=== PATIENT | male | born 1935 | race Caucasian/White ===

== ENCOUNTER 2020-09-18 03:29 | Observation (INO) ==
[2020-09-18] MEDS ORDERED: Potassium Chlor 20 meq TAB.ER PO ONE (05:25)
[2020-09-18] MEDS ORDERED: Enoxaparin 40 MG/0.4 ML SYR SUBCUT SCH (06:00)
[2020-09-18] MEDS: Enoxaparin 40 MG/0.4 ML SYR SUBCUT SCH (08:21)
[2020-09-18 09:19] LABS: ABS Lymphocytes 1.5 10^3/ul (1.0-4.8); ABS Monocytes 0.5 10^3/ul (0-0.8); ABS Neutrophils 5.6 10^3/ul (1.5-7.7); Eosinophil % 0.1 %; Hematocrit 41 % (42-52); Hemoglobin 14.4 g/dL (14.0-18.0); Lymphocyte % 19.9 %; Mean Corpuscular HGB Conc 35 g/dL (31-36); Mean Corpuscular Hemoglobin 33 pg (27-31); Mean Corpuscular Volume 95 fL (80-94); Mean Platelet Volume 9.1 fL (7.4-10.4); Platelet Count 192 10^3/uL (150-450); Red Blood Count 4.32 10^6 /uL (4.18-5.48); Red Cell Distribution Width 13 % (10-15); White Blood Count 7.7 10^3/uL (3.5-10.8)
[2020-09-18 09:38] LABS: BUN/Creatinine Ratio 14.6 (8-20); Calcium 9.3 mg/dL (8.6-10.3); EGFR African American 97.8 (>60); EGFR Non-African American 80.9 (>60); HDL Cholesterol 39.7 mg/dL; Potassium 3.4 mmol/L (3.5-5.0)
[2020-09-18 10:01] LABS: TSH Ultra Thyroid Stim Horm 1.53 mcIU/mL (0.34-5.60)
[2020-09-19 06:09] LABS: ABS Eosinophils 0.1 10^3/ul (0-0.6); ABS Lymphocytes 1.7 10^3/ul (1.0-4.8); ABS Monocytes 0.7 10^3/ul (0-0.8); ABS Neutrophils 3.5 10^3/ul (1.5-7.7); Eosinophil % 1.9 %; Hematocrit 37 % (42-52); Hemoglobin 12.6 g/dL (14.0-18.0); Mean Corpuscular HGB Conc 34 g/dL (31-36); Mean Corpuscular Hemoglobin 33 pg (27-31); Mean Corpuscular Volume 96 fL (80-94); Platelet Count 159 10^3/uL (150-450); Red Blood Count 3.81 10^6 /uL (4.18-5.48); Red Cell Distribution Width 13 % (10-15)
[2020-09-19 06:25] LABS: BUN/Creatinine Ratio 16.8 (8-20); Calcium 9.1 mg/dL (8.6-10.3); EGFR African American 90.7 (>60); Potassium 3.7 mmol/L (3.5-5.0)
[2020-09-19] MEDS: Enoxaparin 40 MG/0.4 ML SYR SUBCUT SCH (09:36)
[2020-09-19 13:02] VITALS: BP 130/67
== END 2020-09-19 14:00 | disposition home or self-care (01) ==
LOC: MEDTELE 03:29 → ED 03:29 → MEDTELE 06:41
PROVIDERS: ADMIT Hospitalist; ATTEND Internal Medicine